=== PATIENT | female | born 1955 | race Two or more races ===

== ENCOUNTER → 2017-12-22 | Day surgery (SDC) | payer BC ==
[~2017-12-22] MED LIST: LIDOCAINE 1% PF 2 ML VIAL. ID; LIDOCAINE 2% PF Vial for OR 5 ML VIAL.; MORPHINE SULFATE 2 MG/ML DISP.SYRIN. IV; ONDANSETRON PF 4 MG/2 ML VIAL. IV; PROCHLORPERAZINE 10 MG/2 ML VIAL. IV; PROPOFOL 40 ML IV; fentaNYL PF VIAL 100 MCG/2 ML VIAL IV
[2017-12-22] MEDS: IV RINGERS,LACTATED 1000ML 1,000 ML IV (08:31)
== END | disposition home or self-care (01) ==
LOC: ENDOS 07:58
DX: D12.4 Benign neoplasm of descending colon (principal); K63.5 Polyp of colon; K64.0 First degree hemorrhoids; E78.00 Pure hypercholesterolemia, unspecified; I10 Essential (primary) hypertension; K21.9 Gastro-esophageal reflux disease without esophagitis; M19.90 Unspecified osteoarthritis, unspecified site; E11.9 Type 2 diabetes mellitus without complications; Z87.39 Personal history of other diseases of the musculoskeletal system and connective tissue; Z82.3 Family history of stroke; Z82.49 Family history of ischemic heart disease and other diseases of the circulatory system; Z79.82 Long term (current) use of aspirin; Z79.84 Long term (current) use of oral hypoglycemic drugs; Z79.899 Other long term (current) drug therapy; Z98.890 Other specified postprocedural states; Z90.721 Acquired absence of ovaries, unilateral
CPT/HCPCS: 45378; 45380; 45385; 88305; J2704